=== PATIENT | female | born 1995 | race Caucasian/White ===

== ENCOUNTER 2023-07-09 14:00 | Outpatient (RCR) | payer BC, SELFPAY ==
[2023-07-09] MEDS: COVID VAC 23-24(12UP)MODERNA/PF 50 MCG/0.5 ML VIAL IM (16:39)
== END 2023-07-09 15:00 | disposition home or self-care (01) ==
LOC: VACCLI 14:00
DX: Z23 Encounter for immunization (principal)
CPT/HCPCS: 90480; 91322

== ENCOUNTER 2023-10-01 20:36 | Outpatient (REF) | payer BC, SELFPAY ==
--- OUTSIDE RECORDS SUMMARY | 2023-10-01 20:43 | XMS_ITS | CCD ---
Author Organization [facility] Care Team Providers Care Personal Support Worker Name Role Phone BERT ., DR CLARKE Admitting Unavailable HOY ., DR CLARKE Attending Unavailable HOY ., DR CLARKE Primary Care Unavailable HOY ., DR CLARKE Consulting Unavailable ZIEBER, DR PANKAJ Chiu Consulting Unavailable CHAITANYA ., DR SILVA Admitting Unavailable CHAITANYA ., DR SILVA Attending Unavailable HOY ., DR CLARKE Primary Care Unavailable CHAITANYA ., DR SILVA Consulting Unavailable CHAITANYA ., DR SILVA Admitting Unavailable CHAITANYA ., DR SILVA Attending Unavailable HOY ., DR CLARKE Primary Care Unavailable CHAITANYA ., DR SILVA Consulting Unavailable ZIEBER, DR PANKAJ Chiu Consulting Unavailable HOY ., DR CLARKE Admitting Unavailable HOY ., DR CLARKE Attending Unavailable HOY ., DR CLARKE Primary Care Unavailable HOY ., DR CLARKE Consulting Unavailable ZIEBER, DR PANKAJ Chiu Consulting Unavailable HOY ., DR CLARKE Admitting Unavailable HOY ., DR CLARKE Attending Unavailable HOY ., DR CLARKE Consulting Unavailable BERT ., DR CLARKE Primary Care Unavailable PENSACOLA, DR ANGELA Wood Consulting Unavailable GRECIA, DR PANKAJ Chiu Consulting Unavailable Tricia Hernandez MD Primary Care Provider [phone] TOÑA SANCHEZ Referring Unavailable TRICIA HERNANDEZ Primary Care Unavailable TRICIA HERNANDEZ Primary Care Unavailable Medications Current Medications Medication Drug Class(es) Dates Sig (Normalized) Sig (Original) albuterol 0.83 mg/ml inhalation solution (2 sources) beta2-Adrenergic Agonist Start: 08-09-2023 End: 08-12-2023 take 2.5 mg by inhalation every four hours as needed albuterol (PROVENTIL) 2.5 mg /3 mL (0.083 %) nebulizer solution Use 3 mL via nebulizer every 4 hours as needed for wheezing/shortnes s of breath for up to 3 days. 30 mL 0 08/09/2023 08/12/2023 Active Start: 08-09-2023 End: 08-09-2023 albuterol 2.5 mg /3 mL (0.08 3 %) 2.5 mg (PROVENTIL) Comment on above: Use 3 mL via nebuliz er every 4 hours as needed for wheezing/shortness of breath for up to 3 days. Completed/Discontinued Medications Medication Drug Class(es) Dates Sig (Normalized) Sig (Original) ARIPiprazole 15 mg oral tablet (2 sources) Atypical Antipsychotic ARIPiprazole (ABILIFY) 15 mg tablet Take 15 mg by mouth. 0 Active Comment on above: Take 15 mg by mouth. Ethinyl Estradiol / Ferrous fumarate / Norethindrone (2 sources) Estrogen Start: 01-22-201508/01, , 1 mg-20 mcg (21)/75 mg (7) per tablet 24 hr metFORMIN hydrochloride 500 mg extended release oral tablet (2 sources) Biguanide Start: 05-06-2017 take 1 tablet by mouth once daily at breakfast, then take 1 tablet by mouth once daily at dinner metFORMIN ER (GLUCOPHAGE XR) 500 mg 24 hr tablet TAKE 1 TABLET BY MOUTH EVERY DAY AT BREAKFAST AND 1 TABLET EVERY DAY AT DINNER 180 tablet 1 05/06/2017 Active Comment on above: TAKE 1 TABLET BY BAIRON TH EVERY DAY AT BREAKFAST AND 1 TABLET EVERY DAY AT DINNER traZODone hydrochloride 50 mg oral tablet (2 sources) Serotonin Reuptake Inhibitor traZODone (DESYREL) 50 mg tablet Problems Active Problems Problem Classification Problem Date Documented Date Episodic/Chronic Malaise and fatigue (2 sources) Fatigue; Translations: [Chronic fatigue, unspecified] Onset: 02-02-2015 02-02-2015 Chronic Other acquired deformities (1 source) Unequal limb length (acquired), unspecified site; Translations: [UNEQUAL LIMB LENGTH ACQ UNS SITE] Onset: 08-20-2022 Episodic Other endocrine disorders (4 sources) Polycystic ovarian syndrome; Translations: [POLYCYSTIC OVARIAN SYNDROME] Onset: 08-18-2022 Chronic Other lower respiratory disease (1 source) Cough; Translations: [Acute cough] 08-09-2023 Episodic Other non-traumatic joint disorders (5 sources) Pain in unspecified hip; Translations: [PAIN IN UNSPECIFIED HIP] Onset: 03-06-2022 Episodic Spondylosis; intervertebral disc disorders; other back problems (1 source) Other intervertebral disc degeneration, lumbosacral region; Translations: [OTH IV DISC DEGEN LUMBOSACRAL RGN] Onset: 08-20-2022 Chronic Thyroid disorders (2 sources) Mena thyroiditis; Translations: [Autoimmune thyroiditis] Onset: 06-26-2015 06-26-2015 Chronic Past or Other Problems Problem Classification Problem Date Documented Date Episodic/Chronic Other acquired deformities (1 source) Unequal limb length (acquired), left femur; Translations: [UNEQUAL LIMB LENGTH ACQ LEFT FEMUR] Onset: 03-07-2022 Episodic Other nutritional; endocrine; and metabolic disorders (2 sources) Abnormal weight gain; Translations: [Abnormal weight gain] Onset: 02-02-2015 02-02-2015 Episodic Other screening for suspected conditions (not mental disorders or infectious disease) (10 sources) Encounter for screening for malignant neoplasm of cervix; Translations: [Abnormal findings on diagnostic imaging of other parts of musculoskeletal system] Onset: 06-26-2015 Episodic Results Test Name Value Interpretation Reference Range Facility [facility] 08-09-2023 CNOV Office Visit (URGCRR ) TAYLOR BROWN ([id number]) 1995 F Date Time Provider Department 08/09/23 11:05 AM TOÑA SANCHEZ URGCRR During your visit today, we recorded the following information about you: Temperature Pulse Blood pressure 97.9 degrees 99/minute 122/80 Toña Sanchez PA-C 08/09/2023 2:45 PM Signed This note was created using NoteWriter. Subjective Taylor M Stephanie is a pleasant 28-year-old female who presents to urgent care with concerns for congestion, cough and wheezing x 4 days. Has been taking htao-suh-hysowjy medications with some relief. Concern for infection with worsening symptoms. Review of Systems HENT: Positive for congestion. Respiratory: Positive for cough and wheezing. Objective BP 122/80 Pulse 99 Temp 36.6 ?C (97.9 ?F) (Temporal Artery) LMP 08/13/2015 SpO2 97% Physical Exam Vitals reviewed. Constitutional: Appearance: Normal appearance. She is not ill-appearing or diaphoretic. HENT: Head: Atraumatic. Nose: Congestion present. Mouth/Throat: Pharynx: Oropharynx is clear. Eyes: Conjunctiva/sclera: Conjunctivae normal. Cardiovascular: Rate and Rhythm: Normal rate. Pulses: Normal pulses. Pulmonary: Effort: Pulmonary effort is normal. Breath sounds: Wheezing (Diffuse) present. Abdominal: General: Abdomen is flat. Musculoskeletal: General: Normal range of motion. Cervical back: Neck supple. Skin: General: Skin is warm. Capillary Refill: Capillary refill takes less than 2 seconds. Neurological: General: No focal deficit present. Mental Status: She is alert and oriented to person, place, and time. Psychiatric: Mood and Affect: Mood normal. Behavior: Behavior normal. Assessment and Plan ASSESSMENT/PLAN: 1. Acute cough - ICD9: 786.2, ICD10: R05.1 -Improved and nearly resolved wheezing with albuterol nebulizer. Did have remaining right-sided wheezes, chest x-ray obtained and does not demonstrate evidence of pneumonia. - COVID AND INFLUENZA A/B AND RSV NAAT, ROUTINE - XR CHEST 2V FRONTAL/LAT -Discussed suspected viral URI. Recommend using albuterol nebulizer every 4 hours x 3 days. -Discussed typical timeline. Symptoms should start to improve after about 10 days. Sop2 initially 95%. Rechecked following albuterol neb, found to be 97%. Patient with gel nail [place] on. Discussed, in detail, suspected diagnosis, differential diagnoses, and plan with patient. Patient admits to feeling comfortable with the plan. Discussed strict follow-up/return and ED precautions. All questions answered. Toña Sanchez PA-C Referring Provider: SELF [200] Allergies As of Date: 08/09/2023 (No Known Allergies) Date Reviewed: 08/09/2023 Reviewed by: Toña Sanchez PA-C - Fully Assessed Reason for Visit: URI [115] Cmt: Stuffy nose, cough, started-Thursday night , congestion Primary Visit Diagnosis:Acute cough [R05.1] Order(s):COVID AND INFLUENZA A/B AND RSV NAAT, ROUTINE [[id number]] Order #: [id number]. #:[id number] [] albuterol 2.5 mg /3 mL (0.083 %) 2.5 mg (PROVENTIL)Disp: Rfl: XR CHEST 2V FRONTAL/LAT [[id number]] Order #: [id number]. #:[id number] albuterol (PROVENTIL) 2.5 mg /3 mL (0.083 %) nebulizer solutionUse 3 mL via nebulizer every 4 hours as needed for wheezing/shortness of breath for up to 3 days.Disp: 30 mLRfl: 0 Prescriptions as of 08/09/2023 - ARIPiprazole (ABILIFY) 15 mg tablet Take 15 mg by mouth. - traZODone (DESYREL) 50 mg tablet - albuterol (PROVENTIL) 2.5 mg /3 mL (0.083 %) nebulizer solution Use 3 mL via nebulizer every 4 hours as needed for wheezing/shortness of breath for up to 3 days. - metFORMIN ER (GLUCOPHAGE XR) 500 mg 24 hr tablet TAKE 1 TABLET BY MOUTH EVERY DAY AT BREAKFAST AND 1 TABLET EVERY DAY AT DINNER - , 1 mg-20 mcg (21)/75 mg (7) per tablet Problem List As Of Date 08/09/2023 Noted Resolved Chronic fatigue [R53.82] 02/02/2015 Abnormal weight gain [R63.5] 02/02/2015 Abnormal thyroid blood test [R79.89] 06/26/2015 Mena's thyroiditis [E06.3] 06/26/2015 Prescriptions ordered this encounter Disp Refills Start End ALBUTEROL SULFATE 2.5 MG/3 ML (0.083* 08/09/2023 08/09/2023 Route: INHALATION ALBUTEROL SULFATE 2.5 MG/3 ML (0.083* 30 mL 0 08/09/2023 08/12/2023 Route: NEBULIZATION Sig: Use 3 mL via nebulizer every 4 hours as needed for wheezing/shortness of breath for up to 3 days. Encounter Status:Closed by TOÑA SANCHEZ on 08/09/23 Normal [facility] COVID AND INFLUENZA A/B AND RSV NAAT, ROUTINEon 08-09-2023 SARS-CoV-2 (COVID-19) RNA DEDRA+probe Ql (Unsp spec) COVID 19 RESULT: Not detected The method used is RT-PCR or an equivalent NAAT method. Reference Range (the expected result in uninfected individuals): Not detected INFLUENZA A PCR: Not detected INFLUENZA B PCR: Not detected RSV PCR: Detected Abnormal [facility] Comment on above: Performed By: #### C VFLRS #### [facility] CLIA [id number] [address] [place] [address] STATES OF [facility] No Panel Informationon 08-09 [facility] XR CHEST 2V FRONTAL/LATon XR CHEST 2V FRONTAL/LAT * * *Final Report* * * DATE OF EXAM: Aug 09 2023 12:46PM RRX [id number] - XR CHEST 2V FRONTAL/LAT / PROCEDURE REASON: Acute cough * * * * Physician Interpretation * * * * EXAMINATION: CHEST RADIOGRAPH (2 VIEW FRONTAL and LATERAL) CLINICAL HISTORY: Acute cough MQ: [id number]_6 EXAM DATE/TIME: 08/09/2023 12:46 PM COMPARISON: No relevant prior studies available. RESULT: Lines, tubes, and devices: None. Lungs and pleura: No consolidation. No lung mass. No pleural effusion. No pneumothorax. Cardiomediastinal silhouette: Normal cardiomediastinal silhouette. Bones and soft tissues: Unremarkable. IMPRESSION: No acute radiographic abnormality. Homicide Squad Sergeant: PSCB Transcribe Date/Time: Aug 09 2023 1:10P Dictated by : NAKIA ACOSTA MD This examination was interpreted and the report reviewed and electronically signed by: NAKIA ACOSTA MD on Aug 09 2023 1:11PM EST [id number] Normal [facility] PAP ACOG PANEL 2: 21 to 29on 08-19-[address] [facility] Comment on above: Performed By: #### [id number] ####[facility] [address] [address]Dr. Devyn Kwan Age Gdln ACOG Testing 21-29 [facility] Comment on above: Performed By: #### 4 [id number] ####[facility] [address] [address] [id number] Kwan DIAGNOSIS: Comment [facility] Comment on above: Result Comment: NEGA TIVE FOR INTRAEPITHELIAL LESION OR MALIGNANCY. THIS SPECIMEN WAS RESCREENED PART OF OUR CLINICAL BUSINESS ANALYST PROGRAM. Performed By: #### 4 [id number] ####[place] [address]DrMarck Kwan Methodology: Comment [facility] Comment on above: Result Comment: This liquid based ThinPrep(R) pap test was screened with the use of an image guided system. Performed By: #### 4 [id number] ####[facility] [address] [place], [place] [address]DrMarck Kwan Note: Comment [facility] Comment on above: Result Comment: The Pap smear is a screening test designed to aid in the detection of premalignant and malignant conditions of the uterine cervix. It is not a diagnostic procedure and should not be used as the sole means of detecting cervical cancer. Both false-positive and false-negative reports do occur. . Performed By: #### 4 [id number] ####[facility] [address] [place], [place] [address]DrMarck Kwan Performed by: Comment Normal [facility] Comment on above: Result Comment: Kisha Dunn, Professional Model (ASCP) Performed By: #### 4 [id number] ####[facility] [address] [place], [place] [address]Dr. Devyn Kwan QC reviewed by: Comment [facility] Comment on above: Result Comment: Amy Santiago, Supervisory Professional Model (ASCP) Performed By: #### 4 [id number] ####[facility] [address] [place], [place] [address]Dr. Devyn Kwan Reflex Criteria: Comment Normal [facility] Comment on above: Result Comment: The HPV DNA reflex criteria were not met with this specimen result therefore, no HPV testing was performed. . Performed By: #### 4 [id number] ####[facility] [address] [place], [place] [address]Kc. Devyn Kwan Specimen adequacy: Comment Normal [facility] Comment on above: Result Comment: Sati sfactory for evaluation. Endocervical and/or squamous metaplastic cells (endocervical component) are present. Performed By: #### 4 [id number] ####[facility] [address] [place], [place] [address]Ez. Devyn Kwan US PELVISon 08-18-2022 US PELVIS EXAMINATION: US PELV IS HISTORY: Polycystic ovary syndrome COMPARISON: No relevant comparison available. TECHNIQUE: Transabdominal sonographic examination. FINDINGS: UTERUS: Normal size and appearance. Uterus size: 7.0 x 5.5 x 3.6 cm ENDOMETRIUM: Normal homogeneous appearance. Endometrial thickness: 3 mm RIGHT OVARY: Normal size and appearance. Duplex Doppler demonstrates normal waveform and flow; resistive index 0.7. Ovary size: 2.6 x 3.1 x 3.3 cm LEFT OVARY: Not seen. CUL-DE-SAC: Unremarkable. No significant free fluid. BLADDER: Unremarkable. OTHER: None. IMPRESSION: 1. Unremarkable uterus and right ovary. Left ovary was not seen. 2. Slightly limited examination. Patient was unable to tolerate endovaginal imaging. Electronically authenticated by: PANKAJ PAIGE Date: 2022-08-18 15:[address] [facility] XR LSPINE MIN 4 VIEWSon XR LSPINE MIN 4 VIEWS EXAMINATION: XR LS PINE MIN 4 VIEWS HISTORY: Hip pain , chronic COMPARISON: XR L-spine 03/04/2022 FINDINGS: BONES: No significant spondylosis, scoliosis, fracture, or visible bony lesion. DISC SPACES: Mild narrowing L5-S1. PARASPINOUS: Negative. No paraspinous abnormality is seen. OTHER: Negative. IMPRESSION: 1. Grossly stable L5-S1 mild-moderate degenerative disc disease. Consider MRI for further evaluation if symptoms persist. Electronically authenticated by: PANKAJ PAIGE Date: 2022-08-18 15:40 Normal [facility] DIEGO by IFAon 03-07-2022 Antinuclear Antibodies, IFA Negative Normal [facility] Comment on above: Result Comment: Nega tive <1:80 Borderline 1:80 Positive >1:80 ICAP nomenclature: AC-0 For more information about Hep-2 cell patterns use ANApatterns.org, the official website for the International Consensus on Antinuclear Antibody (DIEGO) Patterns (ICAP). Performed By: #### A NAIFA #### [facility] [address] [place] [address] Dr. Devyn Kwan XR BONE LEG LENGTHon 022 XR BONE LEG LENGTH EXAM: XR BONE LEG LENGTH HISTORY: Plain X-ray lumbar spine abnormal COMPARISON: None. TECHNIQUE: FINDINGS: Tibia: Symmetrically bilaterally. Femur: 6 mm longer on left resulting in mild rightward pelvic tilt. IMPRESSION: 1. Left leg is 6 mm longer than right due to differences in femur length. Electronically authenticated by: PANKAJ PAIGE Date: 2022-03-07 11:39 Normal [facility] ANTISTREPTOLYSIN O AB (ASO)o n 03-05-2022 Antistreptolysin O Ab 92.2 IU/mL Normal 0.0-200.0 [facility] Comment on above: Performed By: #### A SOAB #### [facility] [address] [place] [address] Dr. Devyn Kwan INSULINon 03-05-2022 Insulin 53.0 uIU/mL Critically high 2.6-24.9 [facility] Comment on above: Performed By: #### I NSULIN #### [facility] [address] [place] [address] Dr. Devyn Kwan RHEUMATOID FACTORon 03-05-20 22 RA Latex Turbid. <10.0 Normal <14.0 [facility] Comment on above: Performed By: #### R F #### [facility] [address] [place] [address] Dr. Devyn Kwan T4, T3U, FTI LABCORPon 03-05 Free Thyroxine Index 2.4 Normal 1.2-4.9 [facility] Comment on above: Performed By: #### T HYLC ####[facility] [address] [place], [place] [address]Lq. Devyn Kwan T3 Uptake 25 % Normal 24-39 [facility] Comment on above: Performed By: #### T HYLC ####[facility] [address] [place], [place] [address]Dq. Devyn Kwan T4 [Mass/Vol] 9.7 ug/dL Normal 4.5-12.0 [facility] Comment on above: Performed By: #### T HYLC ####[facility] [address] [place], [place] [address]Yz. Devyn Kwan XR LSPINE MIN 4 VIEWSon 02-11 XR LSPINE MIN 4 VIEWS EXAMINATION: XR LS PINE MIN 4 VIEWS HISTORY: Hip pain ; acute right hip and leg pain COMPARISON: No relevant comparison available. FINDINGS: BONES: Slight right convex curvature lumbar spine with right iliac wing lower than left. DISC SPACES: Mild narrowing L5-S1. PARASPINOUS: Negative. No paraspinous abnormality is seen. OTHER: Negative. IMPRESSION: 1. No appreciable acute abnormality. 2. L5-S1 mild degenerative disc disease. 3. Right iliac wing is lower than left which may be due to positioning or leg length discrepancy. Electronically authenticated by: PANKAJ PAIGE Date: 2022-03-05 08:36 Normal [facility] CBC AUTO DIFFon 03-04-2022 BASO # 0.0 103/ul Normal 0.0-0.1 [facility] Comment on above: Performed By: #### C BC #### [facility] [address] [address] [address] Devyn Kwan Basophils/100 WBC (Bld) 0.5 % Normal 0.2-2.0 [facility] Comment on above: Performed By: #### C BC #### [facility] [address] [address] [address] Devyn Kwan EO # 0.1 103/ul Normal 0.0-0.7 [facility] Comment on above: Performed By: #### C BC #### [facility] [address] [address] [address] Devyn Kwan Eosinophils/100 WBC (Bld) 0.8 % Critically low 0.9-7.0 [facility] Comment on above: Performed By: #### C BC #### [facility] [address] [place] [address] Dr. Devyn Kwan Erythrocyte distribution width (RBC) [Ratio] 12.4 % Normal 11.0-15.0 [facility] Comment on above: Performed By: #### C BC #### [facility] [address] [place] [address] Dr. Devyn Kwan Hematocrit (Bld) [Volume fraction] 43.1 % Normal 36.0-48.0 [facility] Comment on above: Performed By: #### C BC #### [facility] [address] [place] [address] Dr. Devyn Kwan Hemoglobin (Bld) [Mass/Vol] 14.1 g/dL Normal 12.0-16.0 [facility] Comment on above: Performed By: #### C BC #### [facility] [address] [place] [address] Dr. Devyn Kwan IG # 0.03 10e3/ul Normal 0.00-0.03 [facility] Comment on above: Performed By: #### C BC #### [facility] [address] [place] [address] Dr. Devyn Kwan IG % 0.4 % Normal 0.0-0.5 [facility] Comment on above: Performed By: #### C BC #### [facility] [address] [place] [address] Dr. Devyn Kwan LYMPH # 2.0 103/ul Normal 1.2-3.8 [facility] Comment on above: Performed By: #### C BC #### [facility] [address] [place] [address] Dr. Devyn Kwan Lymphocytes/100 WBC (Bld) 26.7 % Normal 20.5-60.0 [facility] Comment on above: Performed By: #### C BC #### [facility] [address] [place] [address] Dr. Devyn Kwan MANUAL DIFF REQ NO Normal [facility] Comment on above: Performed By: #### C BC #### [facility] [address] [place] [address] Dr. Devyn Kwan MCH (RBC) [Entitic mass] 29.3 pg Normal 26.7-34.0 [facility] Comment on above: Performed By: #### C BC #### [facility] [address] [place] [address] Dr. Devyn Kwan MCHC (RBC) [Mass/Vol] 32.7 g/dL Normal 29.9-35.2 [facility] Comment on above: Performed By: #### C BC #### [facility] [address] [place] [address] Dr. Devyn Kwan MCV (RBC) [Entitic vol] 89.6 fL Normal 81.0-99.0 [facility] Comment on above: Performed By: #### C BC #### [facility] [address] [place] [address] Dr. Devyn Kwan MONO # 0.7 103/ul Normal 0.3-0.8 [facility] Comment on above: Performed By: #### C BC #### [facility] [address] [place] [address] Dr. Devyn Kwan Monocytes/100 WBC (Bld) 8.9 % Normal 1.7-12.0 [facility] Comment on above: Performed By: #### C BC #### [facility] [address] [place] [address] Dr. Devyn Kwan NEUT # 4.6 103/ul Normal 1.4-6.5 [facility] Comment on above: Performed By: #### C BC #### [facility] [address] [place] [address] Dr. Devyn Kwan Neutrophils/100 WBC (Bld) 62.7 % Normal 43.0-75.0 [facility] Comment on above: Performed By: #### C BC #### [facility] [address] [place] [address] Dr. Devyn Kwan Platelet mean volume (Bld) [Entitic vol] 9.6 fL Normal 9.5-13.5 [facility] Comment on above: Performed By: #### C BC #### [facility] [address] [address] [address] Devyn Kwan PLT 379 103/ul Normal 150-450 [facility] Comment on above: Performed By: #### C BC #### [facility] [address] [address] [address] Devyn Kwan RBC 4.81 106/ul Normal 4.20-5.40 [facility] Comment on above: Performed By: #### C BC #### [facility] [address] [address] [address] Devyn Kwan WBC 7.4 103/ul Normal 4.0-11.0 [facility] Comment on above: Performed By: #### C BC #### [facility] [address] [address] [address] Devyn Kwan CRPon 03-04-2022 CRP 1.3 mg/dL Critically high <=1.0 [facility] Comment on above: Performed By: #### C MP, CRP, URIC, LIPID, TSH ####[facility] [facility] [id number] [address]Dr. Devyn Kwan GLYCOHEMOGLOBIN A1Con 2021 ADA RECOMMENDATION SEE BELOW Normal [facility] Comment on above: Result Comment: ADA RECOMMENDED LIMIT 4.0 - 6.0 ADA THERAPEUTIC TARGET < 7.0 ACTION SUGGESTED > 7.0 Performed By: #### A 1C #### [facility] [address] [address] [address] Devyn Kwan Glucose [Mass/Vol] 108 mg/dL Normal [facility] Comment on above: Performed By: #### A 1C #### [facility] [address] [address] [address] Devyn Kwan HbA1c (Bld) [Mass fraction] 5.4 % Normal 4.5-6.2 [facility] Comment on above: Performed By: #### A 1C #### [facility] [address] [address] [address] Devyn Kwan IRONon 03-04-2022 Iron [Mass/Vol] 82.0 ug/dL Normal 50.0-170.0 [facility] Comment on above: Performed By: #### I MAGUI #### [facility] [address] [address] [address] Devyn Kwan LIPID PROFILEon 03-04-2022 CHOL-HDL RATIO NORM SEE BELOW Normal [facility] Comment on above: Result Comment: 3.3 - 4.4 LOW RISK 4.4 - 7.1 AVERAGE RISK 7.1 - 11.0 MODERATE RISK >11.0 HIGH RISK Performed By: #### C MP, CRP, URIC, LIPID, TSH ####[facility] [address] [address]Dr. Devyn Kwan Cholesterol [Mass/Vol] 164 mg/dL Normal <=200 [facility] Comment on above: Performed By: #### C MP, CRP, URIC, LIPID, TSH ####[facility] [address] [address]Dr. Devyn Kwan Cholesterol in HDL [Mass/Vol] 40 mg/dL Normal 40-60 [facility] Comment on above: Performed By: #### C MP, CRP, URIC, LIPID, TSH ####[facility] [address] [address]Dr. Devyn Kwan Cholesterol in LDL [Mass/Vol] 112.4 mg/dL Normal [facility] Comment on above: Performed By: #### C MP, CRP, URIC, LIPID, TSH ####[facility] [address] [address]Dr. Devyn Kwan Cholesterol.total/Cho lesterol in HDL [Mass ratio] 4.1 {ratio} Normal [facility] Comment on above: Performed By: #### C MP, CRP, URIC, LIPID, TSH ####[facility] [address] [address]Dr. Devyn Kwan HDL NORMAL > or = 60 mg/dl - LO W CARDIOVASCULAR RISK <40 mg/dl - HIGH CARDIOVASCULAR RISK Normal [facility] Comment on above: Performed By: #### C MP, CRP, URIC, LIPID, TSH ####[facility] [address] [address]Dr. Devyn Kwan LDL CALC NORMAL SEE BELOW Normal [facility] Comment on above: Result Comment: <100 mg/dl OPTIMAL 100 - 129 mg/dl NEAR OR ABOVE OPTIMAL 130 - 159 mg/dl BORDERLINE HIGH 160 - 189 mg/dl HIGH >190 mg/dl VERY HIGH Performed By: #### C MP, CRP, URIC, LIPID, TSH ####[facility] [address] [address]Dr. Devyn Kwan Triglyceride [Mass/Vol] 58 mg/dL Normal <=150 [facility] Comment on above: Performed By: #### C MP, CRP, URIC, LIPID, TSH ####[facility] [address] [address]Dr. Devyn Kwan VLDL CALC 11.6 mg/dL Normal [facility] Comment on above: Performed By: #### C MP, CRP, URIC, LIPID, TSH ####[facility] [address] [address]Dr. Devyn Kwan PROF 14(COMP METB)on 022 Albumin [Mass/Vol] 3.5 g/dL Normal 3.4-5.0 [facility] Comment on above: Performed By: #### C MP, CRP, URIC, LIPID, TSH ####[facility] [address] [address]Dr. Devyn Kwan Albumin/Globulin [Mass ratio] 0.9 {ratio} Normal [facility] Comment on above: Performed By: #### C MP, CRP, URIC, LIPID, TSH ####[facility] [address] [address]Dr. Devyn Kwan ALP [Catalytic activity/Vol] 80 U/L Normal 46-116 [facility] Comment on above: Performed By: #### C MP, CRP, URIC, LIPID, TSH ####[facility] [address] [address]Dr. Devyn Kwan ALT [Catalytic activity/Vol] 31 U/L Normal 14-59 [facility] Comment on above: Performed By: #### C MP, CRP, URIC, LIPID, TSH ####[facility] [address] [address]Dr. Devyn Kwan Anion gap [Moles/Vol] 13.8 mmol/L Normal Th e [facility] Comment on above: Performed By: #### C MP, CRP, URIC, LIPID, TSH ####[facility] [address] [address]Dr. Devyn Kwan AST [Catalytic activity/Vol] 17 U/L Normal 15-37 [facility] Comment on above: Performed By: #### C MP, CRP, URIC, LIPID, TSH ####[facility] [address] [place], [place] [address]Dr. Devyn Kwan Bilirubin [Mass/Vol] 0.5 mg/dL Normal 0.2-1.0 [facility] Comment on above: Performed By: #### C MP, CRP, URIC, LIPID, TSH ####[facility] [address] [place], [place] [address]Dr. Devyn Kwan Calcium [Mass/Vol] 8.8 mg/dL Normal 8.5-10.1 [facility] Comment on above: Performed By: #### C MP, CRP, URIC, LIPID, TSH ####[facility] [address] [place], [place] [address]Dr. Devyn Kwan Chloride [Moles/Vol] 105 mmol/L Normal 98-107 [facility] Comment on above: Performed By: #### C MP, CRP, URIC, LIPID, TSH ####[facility] [address] [place], [place] [address]Dr. Devyn Kwan CO2 [Moles/Vol] 22.1 mmol/L Normal 21.0-32.0 [facility] Comment on above: Performed By: #### C MP, CRP, URIC, LIPID, TSH ####[facility] [address] [place], [place] [address]Dr. Devyn Kwan Creatinine [Mass/Vol] 0.78 mg/dL Normal 0.55-1.02 [facility] Comment on above: Performed By: #### C MP, CRP, URIC, LIPID, TSH ####[facility] [address] [address]Dr. Yilan Kwan EGFR-AF GERMAN >60 Normal >=60 [facility] Comment on above: Performed By: #### C MP, CRP, URIC, LIPID, TSH ####[facility] [address] [address]Dr. Yilan Kwan EGFR-NON AF GERMAN >60 Normal >=60 [facility] Comment on above: Performed By: #### C MP, CRP, URIC, LIPID, TSH ####[facility] [address] [address]Dr. Devyn Kwan Globulin (S) [Mass/Vol] 4.0 g/dL Normal [facility] Comment on above: Performed By: #### C MP, CRP, URIC, LIPID, TSH ####[facility] [address] [address]Dr. Devyn Kwan Glucose [Mass/Vol] 89 mg/dL Normal 74-106 [facility] Comment on above: Performed By: #### C MP, CRP, URIC, LIPID, TSH ####[facility] [address] [place], [place] [address]Dr. Devyn Kwan Potassium [Moles/Vol] 3.9 mmol/L Normal 3.5-5.1 [facility] Comment on above: Performed By: #### C MP, CRP, URIC, LIPID, TSH ####[facility] [address] [address]Dr. Kaylalan Kwan Protein [Mass/Vol] 7.5 g/dL Normal 6.4-8.2 [facility] Comment on above: Performed By: #### C MP, CRP, URIC, LIPID, TSH ####[facility] [address] [place], [place] [address]Dr. Devyn Kwan Sodium [Moles/Vol] 137 mmol/L Normal 136-145 [facility] Comment on above: Performed By: #### C MP, CRP, URIC, LIPID, TSH ####[facility] [address] [place], [place] [address]Dr. Devyn Kwan Urea nitrogen [Mass/Vol] 11.0 mg/dL Normal 7.0-18.0 [facility] Comment on above: Performed By: #### C MP, CRP, URIC, LIPID, TSH ####[facility] [address] [address]Dr. Devyn Kwan Urea nitrogen/Creatinine [Mass ratio] 14.1 mg/mg Normal [facility] Comment on above: Performed By: #### C MP, CRP, URIC, LIPID, TSH ####[facility] [address] [address]Dr. Devyn Kwan TSHon 03-04-2022 TSH 1.797 uIU/mL Normal 0.358-3.740 [facility] Comment on above: Performed By: #### C MP, CRP, URIC, LIPID, TSH ####[facility] [address] [address]Dr. Devyn Kwan URIC ACID SERUMon 03-04-2022 Urate [Mass/Vol] 5.3 mg/dL Normal 2.6-6.0 [facility] Comment on above: Performed By: #### C MP, CRP, URIC, LIPID, TSH ####[facility] [address] [address]Dr. Devyn Kwan Facesheeton 01-31-2020 Facesheet [id number] 0CD:127 Normal [facility] Ambulatory Clinical Summaryo n 01-27-2020 Ambulatory Clinical Summary {[id number]}CD:[id number] Normal [facility] Physician Referralon 020 Physician Referral [id number] CD:127 Normal [facility] Vital Signs Date Time Vital Sign Value Performing Clinician Faci lity 08-09-2023 13:20-0500 SaO2% (BldA) [Mass fraction] 97 % Toña Bachra PA-C Work Phone: [facility] 08-09-2023 11:44-0500 Body temperature 97.9 [degF] Toña Bachra PA-C Work Phone: [facility] 08-09-2023 11:44-0500 Diastolic blood pressure 80 mm[Hg] Toña Bachra PA-C Work Phone: [facility] 08-09-2023 11:44-0500 Heart rate 99 /min Toña Bachra PA-C Work Phone: [facility] 08-09-2023 11:44-0500 Systolic blood pressure 122 mm[Hg] Toña Bachra PA-C Work Phone: [facility] Encounters Encounter Date Encounter Type Care Provider Facility Start: 08-09-2023 End: 08-09-2023 ambulatory TOÑA SANCHEZ Facility:[facility] Start: 08-09-2023 End: 08-09-2023 ambulatory TRICIA HERNANDEZ Radiology Comment on above: Radiology XR Start: 08-09-2023 End: 08-09-2023 Patient encounter procedure Xr [facility] Start: 08-09-2023 End: 08-09-2023 Patient encounter procedure Toña Bachra PA-C Work Phone: [facility] Comment on above: Acute cough (Primary Dx) Start: 07-09-2023 End: 07-09-2023 ambulatory Not Available Start: 08-18-2022 End: 08-19-[address] SHIRA TAVARES . Facility:[facility] Start: 08-12-2022 End: 08-12-[address] SHIRA TAVARES . Facility:[facility] Start: 03-06-2022 Encounter for genera l adult medical examination without abnormal findings DR TRICIA HERNANDEZ . [facility] Start: 03-06-2022 End: 03-07-[address] TRICIA HERNANDEZ . Facility:[facility] Start: 03-04-2022 End: 03-05-[address] TRICIA HERNANDEZ . Facility:[facility] Start: 03-04-2022 End: 03-05-2022 Encounter for general adult medical examination without abnormal findings DR TRICIA HERNANDEZ . Facility:[facility] Procedures Date Procedure Procedure Detail Performing Clinician Start: 08-09-2023 Radiologic exam ches t 2 views Toña Sanchez PA-C Work Phone: Plan of Treatment Date Care Activity Detail Author Start: 10-29-2030 Urine microalbumin profile DTaP,Tdap,Td Vaccine (3 - Td or Tdap) [facility] Start: 07-13-2023 Depression Assessment Depression Ass essment [facility] Start: 03-13-2023 Covid-19 Vaccine () Covid-19 Vaccine () [facility] Start: 03-13-2023 Influenza vaccination Influenza Vacc ine (#1) [facility] Start: 2018 Screening for malign ant neoplasm of cervix Pap Testing [facility] Start: 2015 Hepatitis C screening Hepatitis C Sc reening [facility] Start: 2015 HIV screening HIV Screening [facility] Start: 2011 Peds To Adult Transition Annual Assessment Peds To Adult Transition Annual Assessment [facility] Start: 2009 Peds To Adult Transition Initial Discussion Peds To Adult Transition Initial Discussion [facility] Start: 01-29-1998 Hepatitis B Vaccine (3 of 3 - 3-dose series) Hepatitis B Vaccine (3 of 3 - 3-dose series) [facility] COVID & INFLUENZA A/ B & RSV NAAT, ROUTINE COVID & INFLUENZA A/B & RSV NAAT, ROUTINE Microbiology Routine Acute cough Ordered: 08/09/2023 [facility] Work Phone: Comment on above: Ordered: 08/09/2023 Immunizations Immunization Date Immunization Notes Care Provider Fa valarie 08-15-2022 influenza virus vacc ine, unspecified formulation Xr [facility] Payers Date Payer Category Payer Unknown [employer]ARGUERITE DASILVA SS PPO [id number] 2023-Present [phone] [address] [place] [address] PPO [id number] 2022 Unknown [id number] 2019 Unknown [id number] 1997 Unknown [id number] 1997 Unknown [id number] 1997 Unknown [id number] 1997 Unknown [id number] 1997 Unknown [id number] 1997 Unknown [id number] Social History Date Type Detail Facility Start: 02-02-2015 Tobacco smoking stat [facility] Never smoked tobacco [facility] Start: 02-02-2015 Tobacco use and exposure Smoke less tobacco non-user [facility] Start: 08-09-2023 Alcohol intake Not Asked [facility] Start: 08-09-2023 History of Social function [facility] Start: 08-09-2023 Tobacco use panel [facility] Start: 1997 Sex Assigned At Not on file [facility] Progress note 08-09-2023 Note Date & Type Note Facility 08-09-2023 Note HNO ID: [id number] Author: TOÑA SANCHEZ PA-C Service: ? Author Type: Physician Sports Statistician Type: Progress Notes Filed: 08/09/2023 14:45 Note Text: This note was created using NoteWriter. Subjective Taylor Brwon is a pleasant 28-year-old female who presents to urgent care with concerns for congestion, cough and wheezing x 4 days. Has been taking mpcd-obh-dsyyqyj medications with some relief. Concern for infection with worsening symptoms. Review of Systems HENT: Positive for congestion. Respiratory: Positive for cough and wheezing. Objective BP 122/80 Pulse 99 Temp 36.6 ?C (97.9 ?F) (Temporal Artery) LMP 08/13/2015 SpO2 97% Physical Exam Vitals reviewed. Constitutional: Appearance: Normal appearance. She is not ill-appearing or diaphoretic. HENT: Head: Atraumatic. Nose: Congestion present. Mouth/Throat: Pharynx: Oropharynx is clear. Eyes: Conjunctiva/sclera: Conjunctivae normal. Cardiovascular: Rate and Rhythm: Normal rate. Pulses: Normal pulses. Pulmonary: Effort: Pulmonary effort is normal. Breath sounds: Wheezing (Diffuse) present. Abdominal: General: Abdomen is flat. Musculoskeletal: General: Normal range of motion. Cervical back: Neck supple. Skin: General: Skin is warm. Capillary Refill: Capillary refill takes less than 2 seconds. Neurological: General: No focal deficit present. Mental Status: She is alert and oriented to person, place, and time. Psychiatric: Mood and Affect: Mood normal. Behavior: Behavior normal. Assessment and Plan ASSESSMENT/PLAN: 1. Acute cough - ICD9: 786.2, ICD10: R05.1 -Improved and nearly resolved wheezing with albuterol nebulizer. Did have remaining right-sided wheezes, chest x-ray obtained and does not demonstrate evidence of pneumonia. - COVID AND INFLUENZA A/B AND RSV NAAT, ROUTINE - XR CHEST 2V FRONTAL/LAT -Discussed suspected viral URI. Recommend using albuterol nebulizer every 4 hours x 3 days. -Discussed typical timeline. Symptoms should start to improve after about 10 days. Sop2 initially 95%. Rechecked following albuterol neb, found to be 97%. Patient with gel nail [place] on. Discussed, in detail, suspected diagnosis, differential diagnoses, and plan with patient. Patient admits to feeling comfortable with the plan. Discussed strict follow-up/return and ED precautions. All questions answered. Toña Sanchez PA-C [facility] Progress note 08-09-2023 Note Date & Type Note Facility 08-09-2023 Note HNO ID: [id number] Author: KOBE SUNSHINE RT(R) Service: ? Author Type: Technologist Type: Progress Notes Filed: 08/09/2023 12:47 Note Text: Radiology Service Progress Note PATIENT NAME: Taylor Brown DATE OF SERVICE: August 09, 2023 TIME: 12:47 PM PATIENT IDENTITY VERIFICATION COMPLETED USING TWO (2) IDENTIFIERS: Name and Date of confirmed by patient verbally. FALL SCREENING: Has the patient had 2 falls in the last year or 1 fall with injury or currently using an Ambulatory Assistive Device (Walker, Cane, Wheelchair, Crutches, etc.)? No PATIENT GENDER DATA: Female. status: : No status: NO. PATIENT RELEVANT IMPLANT DATA REVIEWED: Not Applicable PATIENT PRESENTS WITH AN IMPLANTABLE OR ATTACHED GARMENT SORTER: No RADIOLOGY DEPARTMENT: General X-ray: Exam(s) Completed: Chest X-Ray PERIPHERAL IV DATA: Not applicable SIGNED BY: RT Christiano(R) August 09, 2023 12:47 PM [facility] History of Present illness Narrative 08-09-2023 Toña Sanchez PA-C - 08/09/2023 2:41 PM EST Note Date & Type Note Facility 08-09-2023 History of Presen t illness Narrative This note was created using Personal Cell Sciencesriter. Subjective Taylor Brown is a pleasant 28-year-old female who presents to urgent care with concerns for congestion, cough and wheezing x 4 days. Has been taking tpjt-ekn-exmahbw medications with some relief. Concern for infection with worsening symptoms. Review of Systems HENT: Positive for congestion. Respiratory: Positive for cough and wheezing. Objective BP 122/80 Pulse 99 Temp 36.6 C (97.9 F) (Temporal Artery) LMP 08/13/2015 SpO2 97% Physical Exam Vitals reviewed. Constitutional: Appearance: Normal appearance. She is not ill-appearing or diaphoretic. HENT: Head: Atraumatic. Nose: Congestion present. Mouth/Throat: Pharynx: Oropharynx is clear. Eyes: Conjunctiva/sclera: Conjunctivae normal. Cardiovascular: Rate and Rhythm: Normal rate. Pulses: Normal pulses. Pulmonary: Effort: Pulmonary effort is normal. Breath sounds: Wheezing (Diffuse) present. Abdominal: General: Abdomen is flat. Musculoskeletal: General: Normal range of motion. Cervical back: Neck supple. Skin: General: Skin is warm. Capillary Refill: Capillary refill takes less than 2 seconds. Neurological: General: No focal deficit present. Mental Status: She is alert and oriented to person, place, and time. Psychiatric: Mood and Affect: Mood normal. Behavior: Behavior normal. Assessment and Plan ASSESSMENT/PLAN: 1. Acute cough - ICD9: 786.2, ICD10: R05.1 -Improved and nearly resolved wheezing with albuterol nebulizer. Did have remaining right-sided wheezes, chest x-ray obtained and does not demonstrate evidence of pneumonia. - COVID & INFLUENZA A/B & RSV NAAT, ROUTINE - XR CHEST 2V FRONTAL/LAT -Discussed suspected viral URI. Recommend using albuterol nebulizer every 4 hours x 3 days. -Discussed typical timeline. Symptoms should start to improve after about 10 days. Sop2 initially 95%. Rechecked following albuterol neb, found to be 97%. Patient with gel nail [place] on. Discussed, in detail, suspected diagnosis, differential diagnoses, and plan with patient. Patient admits to feeling comfortable with the plan. Discussed strict follow-up/return and ED precautions. All questions answered. Toña Sanchez PA-C documented in this encounter [facility] History of Present illness Narrative 08-09-2023 Kobe Sunshine RT(R) - 08/09/2023 12:47 PM EST Note Date & Type Note Facility 08-09-2023 History of Presen t illness Narrative Radiology Service Progress Note PATIENT NAME: Taylor Brown DATE OF SERVICE: August 09, 2023 TIME: 12:47 PM PATIENT IDENTITY VERIFICATION COMPLETED USING TWO (2) IDENTIFIERS: Name and Date of confirmed by patient verbally. FALL SCREENING: Has the patient had 2 falls in the last year or 1 fall with injury or currently using an Ambulatory Assistive Device (Walker, Cane, Wheelchair, Crutches, etc.)? No PATIENT GENDER DATA: Female. status: : No status: NO. PATIENT RELEVANT IMPLANT DATA REVIEWED: Not Applicable PATIENT PRESENTS WITH AN IMPLANTABLE OR ATTACHED GARMENT SORTER: No RADIOLOGY DEPARTMENT: General X-ray: Exam(s) Completed: Chest X-Ray PERIPHERAL IV DATA: Not applicable SIGNED BY: RT Christiano(R) August 09, 2023 12:47 PM documented in this encounter [facility] Clinical Note 08-18-2022 Note Date & Type Note Facility 08-18-2022 Note PROCEDURE: XR HIP RT 2 3V W PELVIS HISTORY: Hip pain , chronic COMPARISON: XR bone leg length 03/06/2022 FINDINGS: BONES:No fracture, acute abnormality, or significant arthropathy. SOFT TISSUES:No visible soft tissue swelling. EFFUSION:None visible. OTHER: Negative. IMPRESSION: 1. No acute bone abnormality or significant degenerative changes of the right hip joint. 2. Known leg length discrepancy with right shorter than left. Electronically authenticated by: PANKAJ PAIGE Date: 2022-08-18 15:42 [facility] Clinical Note 03-04-2022 Note Date & Type Note Facility 03-04-2022 Note PROCEDURE: XR HIP RT 2 3V W PELVIS COMPARISON: None. HISTORY: Hip pain FINDINGS: BONES:No fracture, acute abnormality, or significant arthropathy. SOFT TISSUES:Negative. No visible soft tissue swelling. EFFUSION:None visible. OTHER: Negative. IMPRESSION: No acute abnormality Electronically authenticated by: ANGELA HICKS Date: 2022-03-04 15:49 [facility] Evaluation note Note Date & Type Note Facility Evaluation note Diagnosis Acute cough- Primary documented in this encounter [facility] Summary Purpose Family History No Family History Records FoundNo Family History Records FoundNo Family History Records FoundNo Family History Records Found Advance Directives No Advanced Directives Records FoundNo Advanced Directives Records FoundNo Advanced Directives Records FoundNo Advanced Directives Records Found Additional Source Comments INFORMATION SOURCE (unrecogn ized section and content) DATE CREATED AUTHOR 02/28/2020 [facility] DATE CREATED AUTHOR AUTHOR'S ORGANIZ ATION 11/05/2022 [facility] DATE CREATED AUTHOR AUTHOR'S ORGANIZ ATION 07/11/2023 [facility] EPIC DATE CREATED AUTHOR AUTHOR'S ORGANIZ ATION 08/10/2023 [facility] Source Comments (unrecognize d section and content) In the event this informatio n is protected by the Federal Confidentiality of Alcohol and Drug Abuse Patient Records regulations: The Federal rules restrict any use of the information to criminally investigate or prosecute any alcohol or drug abuse patient.[facility] the event this information is protected by the Federal Confidentiality of Alcohol and Drug Abuse Patient Records regulations: The Federal rules restrict any use of the information to criminally investigate or prosecute any alcohol or drug abuse patient.[facility] Reason for Visit (unrecogniz ed section and content) Reason Comments Radiology XR Reason Comments URI Stuffy nose, cough, started-Thursday night , congestion Care Teams (unrecognized sec tion and content) Personal Support Worker Relationship Specialty Start Date End Date Tricia Hernandez MD PCP - General Family Medicine 01/30/15 Personal Support Worker Relationship Specialty Start Date End Date Tricia Hernandez MD PCP - General Family Medicine 01/30/15 Inactive Administered Medications - up to 3 most recent administrations Administered Medications (un recognized section and content) Medication Order MAR Action Action Date Dose Rate Site albuterol 2.5 mg /3 mL (0.083 %) 2.5 mg (PROVENTIL) 2.5 mg, INHALATION, ONCE, 1 dose, On 08/09/23 at 1230 Given 08/09/2023 12:12 PM EST 2.5 mg FOR RECORDS PERTAINING TO PATIENTS WHO ARE OR HAVE BEEN ENROLLED IN A CHEMICAL DEPENDENCY/SUBSTANCEABUSE PROGRAM, SOME INFORMATION MAY BE OMITTED. This clinical summary was aggregated from multiple sources. Caution should be exercised in using it in the provision of clinical care. This summary normalizes information from multiple sources, and as a consequence, information in this document may materially change the coding, format and clinical context of patient data. In addition, data may be omitted in some cases. CLINICAL DECISIONS SHOULD BE BASED ON THE PRIMARY CLINICAL RECORDS. [facility]. provides no warranty or guarantee of the accuracy or completeness of information in this document.
[2023-10-08 15:09] LABS: Age Gdln ACOG Testing Note (.); IGP, rfx Aptima HPV ASCU Note (.)
== END 2023-10-01 20:37 | disposition home or self-care (01) ==
LOC: LAB 20:36
PROVIDERS: Visit Provider Physician Assistant
DX: Z01.419 Encounter for gynecological examination (general) (routine) without abnormal findings (principal)
CPT/HCPCS: G0145